=== PATIENT | male | born 1985 | race Caucasian/White ===

== ENCOUNTER 2019-08-29 04:21 | Emergency (ER) | payer MEDICAID ==
[~2019-08-29] VITALS: Ht 175.3 cm; Wt 68.9 kg
[2019-08-29 04:34] VITALS: BP 146/85
== END 2019-08-29 04:39 | disposition left against medical advice (07) ==
LOC: EDBD 04:21 → ER 04:27
DX: S01.112A Laceration without foreign body of left eyelid and periocular area, initial encounter (principal); Y09 Assault by unspecified means; Z53.21 Procedure and treatment not carried out due to patient leaving prior to being seen by health care provider

== ENCOUNTER 2023-12-09 00:39 | Emergency (ER) | payer MEDICAID ==
[~2023-12-09] VITALS: Ht 175.3 cm; Wt 87.3 kg
[2023-12-09 01:25] VITALS: PULSE 70; RESP 13; O2SAT 95
[2023-12-09] MEDS: MORPHINE SULFATE 4 MG/ML SYR/VIAL IV ONE (02:43)
[2023-12-09] MEDS: ONDANSETRON HCL 4 MG/2 ML VIAL IV ONE (02:43)
[2023-12-09] MEDS: KETAMINE 50mg/ML 1ml syringe IV ONE (03:08)
[2023-12-09] MEDS: MIDAZOLAM HCL 2MG/2ML 2ml VIAL (1mg/ml) IV ONE (03:08)
[2023-12-09] MEDS ORDERED: NAP500T GT (04:50)
[2023-12-09 05:00] VITALS: BP 117/68; PULSE 56; RESP 16; O2SAT 96
== END 2023-12-09 06:22 | disposition home or self-care (01) ==
LOC: ER 00:39
DX: S43.014A Anterior dislocation of right humerus, initial encounter (principal); W10.8XXA Fall (on) (from) other stairs and steps, initial encounter; Y93.89 Activity, other specified; Y92.89 Other specified places as the place of occurrence of the external cause; Y99.8 Other external cause status
CPT/HCPCS: 23650; 73020; 73030; 96374; 96375; 99152; 99285; J2250; J2270; J2405